=== PATIENT | female | born 1950 | race Caucasian/White ===

== ENCOUNTER 2017-11-29 15:40 | Outpatient (CLI) | payer OTHER | END 2017-11-29 15:41 | disposition home or self-care (01) | LOC: BICMAMMO 15:40 | PROVIDERS: ATTEND Student in an Organized Health Care Education/Training Program | DX: Z12.31 Encounter for screening mammogram for malignant neoplasm of breast (principal); Z80.3 Family history of malignant neoplasm of breast | CPT/HCPCS: 77063; 77067 ==

== ENCOUNTER 2018-11-30 14:20 | Outpatient (CLI) | payer OTHER ==
--- NOTE | 2018-12-01 10:47 | MMO ---
Bilateral MAMMO Bilat Screen [facility]. CLINICAL HISTORY: Patient is 68 years old and is seen for screening. The patient has the following family history of breast cancer: maternal grandmother, malignant (generic). The patient has no personal history of cancer. VIEWS: The views performed were: bilateral craniocaudal with tomosynthesis and bilateral mediolateral oblique with tomosynthesis. FILMS COMPARED: The present examination has been compared to prior imaging studies performed at [facility] on 12/23/2014 and 01/02/2016, and at [facility] on 11/29/2017. MAMMOGRAM FINDINGS: There are scattered fibroglandular densities. There is a single benign appearing calcification seen in the right breast. There are no suspicious masses, calcifications or areas of architectural distortion. IMPRESSION: CALCIFICATION IN THE RIGHT BREAST IS BENIGN. A ROUTINE FOLLOW-UP MAMMOGRAM IN 1 YEAR IS RECOMMENDED. THE RESULTS OF THIS EXAM WERE SENT TO THE PATIENT. ACR BI-RADS Category 2 - Benign finding MAMMOGRAPHY NOTE: 1. A negative mammogram report should not delay a biopsy if a dominant of clinically suspicious mass is present. 2. Approximately 10% to 15% of breast cancers are not detected by mammography. 3. Adenosis and dense breasts may obscure an underlying neoplasm.
== END 2018-11-30 14:21 | disposition home or self-care (01) ==
LOC: BICMAMMO 14:20
PROVIDERS: ATTEND Student in an Organized Health Care Education/Training Program
DX: Z12.31 Encounter for screening mammogram for malignant neoplasm of breast (principal); Z80.3 Family history of malignant neoplasm of breast; R92.1 Mammographic calcification found on diagnostic imaging of breast
CPT/HCPCS: 77063; 77067

== ENCOUNTER 2020-03-05 15:28 | Outpatient (CLI) | payer MEDICARE ==
--- NOTE | 2020-03-05 15:57 | MMO ---
Bilateral MAMMO Bilat Screen [facility]. CLINICAL HISTORY: Patient is 69 years old and is seen for screening. The patient has the following family history of breast cancer: maternal grandmother, malignant (generic). The patient has no personal history of cancer. VIEWS: The views performed were: bilateral craniocaudal with tomosynthesis and bilateral mediolateral oblique with tomosynthesis. FILMS COMPARED: The present examination has been compared to prior imaging studies performed at [facility] on 01/02/2016, and at [facility] on 11/29/2017 and 11/30/2018. This study has been interpreted with the assistance of computer-aided detection. MAMMOGRAM FINDINGS: There are scattered fibroglandular densities. There is a single benign appearing calcification seen in the right breast. There are no suspicious masses, suspicious calcifications, or new areas of architectural distortion. IMPRESSION: THERE IS NO MAMMOGRAPHIC EVIDENCE OF MALIGNANCY. A ROUTINE FOLLOW-UP MAMMOGRAM IN 1 YEAR IS RECOMMENDED. THE RESULTS OF THIS EXAM WERE SENT TO THE PATIENT. ACR BI-RADS Category 2 - Benign finding MAMMOGRAPHY NOTE: 1. A negative mammogram report should not delay a biopsy if a dominant of clinically suspicious mass is present. 2. Approximately 10% to 15% of breast cancers are not detected by mammography. 3. Adenosis and dense breasts may obscure an underlying neoplasm. Reported by: ETHAN PADILLA MD Electonically Signed: [id number]
== END 2020-03-05 15:29 | disposition home or self-care (01) ==
LOC: BICMAMMO 15:28
PROVIDERS: ATTEND Student in an Organized Health Care Education/Training Program
DX: Z12.31 Encounter for screening mammogram for malignant neoplasm of breast (principal); Z80.3 Family history of malignant neoplasm of breast
CPT/HCPCS: 77063; 77067

== ENCOUNTER 2020-03-26 14:00 | Outpatient (CLI) | payer MEDICARE ==
--- NOTE | 2020-03-26 15:58 | MRI ---
MRI THORACIC SPINE WITH AND WITHOUT CONTRAST: 03/26/20 INDICATIONS: Back pain with radiculopathy. FINDINGS: The thoracic vertebrae maintain height and alignment. Thoracic vertebra signal appears normal with no evidence of edema. Degenerative disc changes seen at all levels. Degenerative osteophytes are seen f rom the thoracic spine most prominent at T4-5, T5-6, and T6-7 levels. Mild disc bulge at multiple levels as described. At T3-4 there is a broad based disc bulge slightly more prominent paracentrally on the right flatteni ng the anterior thecal sac. This does abut the anterior cord on the right. This is at the level of sk in marker which is site of patient's pain. At T4-5, mild broad based bulge mildly flattens the anterior thecal sac but does not impinge on the c ord. At T5-6, there is a broad based disc bulge flattening the thecal sac without cord impingement. Mild disc bulge at T6-7 and T7-8 mildly flatten the anterior thecal sac. At T8-9, more pronounced disc bulge paracentrally on the right flattens the anterior thecal sac on th e right and abuts the anterior cord. At T9-10, there is a diffuse disc bulge abutting the anterior cord. At T10-11, mild disc bulge flattening the thecal sac. At T11-12, mild diffuse disc bulge flattens the thecal sac. At T12-L1, no significant disc bulge. Thoracic cord signal appears normally maintained. No abnormal enhancement identified. IMPRESSION: Degenerative disc changes throughout the thoracic spine with mild disc bulges at several levels as de scribed above. POS: EVELIA
== END 2020-03-26 14:01 | disposition home or self-care (01) ==
LOC: BICMRI 14:00
PROVIDERS: ATTEND Student in an Organized Health Care Education/Training Program
DX: M51.14 Intervertebral disc disorders with radiculopathy, thoracic region (principal); M43.16 Spondylolisthesis, lumbar region
CPT/HCPCS: 72157; 82565

== ENCOUNTER 2020-04-29 14:36 | Outpatient (CLI) | payer MEDICARE ==
--- NOTE | 2020-04-29 15:11 | RAD ---
LUMBAR SPINE 4 VIEWS: AP and lateral views. INDICATION: Lumbar spondylolisthesis. Back pain. FINDINGS: Lumbar vertebrae maintain normal height in the lateral projection. There is a slight anterolisthesis at L4-5 in a neutral position. This appears to exacerbate with flexion. Mild degenerative spurring. Prominent facet hypertrophy. IMPRESSION: Degenerative changes of the lumbar spine as described. Anterior listhesis at L4-5 as described. POS: AGW
== END 2020-04-29 14:37 | disposition home or self-care (01) ==
LOC: BICRAD 14:36
PROVIDERS: ATTEND Nurse Practitioner Family
DX: M43.16 Spondylolisthesis, lumbar region (principal); M47.816 Spondylosis without myelopathy or radiculopathy, lumbar region
CPT/HCPCS: 72110

== ENCOUNTER 2022-03-01 10:21 | Outpatient (CLI) | payer MEDICARE | END 2022-03-01 10:22 | disposition home or self-care (01) | LOC: BICCT 10:21 | PROVIDERS: ATTEND Neurological Surgery | DX: M43.16 Spondylolisthesis, lumbar region (principal); M47.816 Spondylosis without myelopathy or radiculopathy, lumbar region | CPT/HCPCS: 72131 ==

== ENCOUNTER 2022-03-26 10:29 | Outpatient (CLI) | payer MEDICARE ==
[2022-03-26 11:38] LABS: Anion Gap 13 mmol/L (10-20); BUN (Urea Nitrogen) 13 mg/dL (9.8-20.1); Calc. Creatinine Clearance 0 mL/min (70-130); Carbon Dioxide 28 mmol/L (23-31); Chloride 101 mmol/L (98-107); Estimated GFR 63; Glucose 140 mg/dL (80-115); Potassium 3.3 mmol/L (3.5-5.1); Sodium 139 mmol/L (136-145)
== END 2022-03-26 10:30 | disposition home or self-care (01) ==
LOC: LABBT 10:29
PROVIDERS: ATTEND Neurological Surgery
DX: Z01.812 Encounter for preprocedural laboratory examination (principal); M43.16 Spondylolisthesis, lumbar region; M54.16 Radiculopathy, lumbar region; Z20.822 Contact with and (suspected) exposure to COVID-19
CPT/HCPCS: 80048; 87811

== ENCOUNTER 2022-03-31 07:13 | Day surgery (SDC) | payer MEDICARE ==
[2022-03-25 10:28] VITALS: BMI 31.8
[2022-03-31] MEDS ORDERED: EPINEPHrine 1 MG/ML AMP ONE (08:44)
[2022-03-31] MEDS ORDERED: Thrombin 5000 UNITS/5 ML VIAL ONE (08:44)
[2022-03-31] MEDS ORDERED: Bupivacaine PF 0.5% 30 ML VIAL ONE (08:44)
[2022-03-31] MEDS ORDERED: CEFAZOLIN 2 GM VIAL ONE ×2 (08:57→15:17)
[2022-03-31] MEDS ORDERED: Sodium Chloride 0.9% 100 ML ONE ×2 (08:57→15:17)
[2022-03-31] MEDS ORDERED: Midazolam HCl 2 mg/2 ml Vial ONE (09:09)
[2022-03-31] MEDS ORDERED: fentaNYL Citrate/PF 100 MCG/2 ML SYRINGE ONE (09:09)
[2022-03-31] MEDS ORDERED: HYDROmorphone 2 MG/ML VIAL ONE (10:48)
[2022-03-31] MEDS ORDERED: Fentanyl 100 MCG/2 ML VIAL ONE (12:31)
[2022-03-31] MEDS ORDERED: Promethazine HCl 25 MG/ML VIAL ONE (15:40)
[2022-03-31] MEDS ORDERED: HYDROcodone/Acetaminophen 5/325 mg Tablet ONE (17:19)
== END 2022-03-31 18:00 | disposition home or self-care (01) ==
LOC: SDC 07:13
PROVIDERS: ATTEND Neurological Surgery
PROC: 0SG0071 Fusion of Lumbar Vertebral Joint with Autologous Tissue Substitute, Posterior Approach, Posterior Column, Open Approach (ICD-10-PCS; principal; 2022-03-31)
DX: M43.16 Spondylolisthesis, lumbar region (principal); M54.16 Radiculopathy, lumbar region; M48.061 Spinal stenosis, lumbar region without neurogenic claudication; I10 Essential (primary) hypertension; E78.5 Hyperlipidemia, unspecified; Z79.899 Other long term (current) drug therapy
CPT/HCPCS: 76000; C1713; C1768; J0171; J0690; J1170; J2250; J2550; J3010; J3490; S0020

== ENCOUNTER 2022-04-30 13:31 | Outpatient (CLI) | payer MEDICARE, OTHER | END 2022-04-30 13:32 | disposition home or self-care (01) | LOC: BICMAMMO 13:31 | PROVIDERS: ATTEND Family Medicine | DX: Z12.31 Encounter for screening mammogram for malignant neoplasm of breast (principal); Z80.3 Family history of malignant neoplasm of breast | CPT/HCPCS: 77063; 77067 ==

== ENCOUNTER 2023-02-01 12:28 | Outpatient (CLI) | payer OTHER | END 2023-02-01 12:29 | disposition home or self-care (01) | LOC: ULT 12:28 | PROVIDERS: ATTEND Student in an Organized Health Care Education/Training Program | DX: R60.9 Edema, unspecified (principal); I11.9 Hypertensive heart disease without heart failure; I34.0 Nonrheumatic mitral (valve) insufficiency | CPT/HCPCS: 93306 ==

== ENCOUNTER 2023-08-17 11:52 | Outpatient (CLI) | payer OTHER | END 2023-08-17 11:53 | disposition home or self-care (01) | LOC: BICMAMMO 11:52 | PROVIDERS: ATTEND Family Medicine | DX: Z12.31 Encounter for screening mammogram for malignant neoplasm of breast (principal); Z80.3 Family history of malignant neoplasm of breast | CPT/HCPCS: 77063; 77067 ==

== ENCOUNTER 2024-10-26 13:06 | Outpatient (CLI) | payer OTHER | END 2024-10-26 13:07 | disposition home or self-care (01) | LOC: BICMAMMO 13:06 | PROVIDERS: ATTEND Nurse Practitioner Primary Care | DX: Z12.31 Encounter for screening mammogram for malignant neoplasm of breast (principal); Z80.3 Family history of malignant neoplasm of breast | CPT/HCPCS: 77063; 77067 ==